=== PATIENT | female | born 1985 | race Caucasian/White ===

== ENCOUNTER 2018-05-12 08:36 | Day surgery (SDC) | payer OTHER ==
[2018-05-09 09:46] VITALS: BMI 47.8
[~2018-05-12 08:36] MED LIST: DEXAMETHASONE SOD PHOSPHATE 10 MG/ML 1 ML VIAL IV ONE; HEPARIN SODIUM,PORCINE 5,000 UNIT/ML 1 ML VIAL SQ ONE; HYDROmorphone 1 MG/ML 1 ML SYRINGE IVP PRN; LACTATED RINGERS 1,000 ML IV SCH; MIDAZOLAM (PF) 2 MG/2 ML VIAL IV PRN; ONDANSETRON 4 MG/2 ML VIAL IVP ONE; SCOPOLAMINE 1.5MG/72HR PATCH TRANSDERM ONE
[2018-05-12] MEDS ORDERED: LIDOCAINE 1% 20 ML VIAL (10MG/ML) FOR IV START INTRADERMA ONE (09:23)
--- NOTE | 2018-05-12 10:19 | P.GSHP ---
History of Present Illness H&P Date: 05/12/18 Chief Complaint: Back lipoma This is a 33-year-old female who has developed a 5 cm back lipoma. Patient has a lipoma located in the upper midline back. She states that she has pain when laying on her back. Past Medical History Past Medical History: Hypertension History of Any Multi-Drug Resistant Organisms: None Reported Past Surgical History: Cholecystectomy Past Anesthesia/Blood Transfusion Reactions: No Reported Reaction Past Psychological History: No Psychological Hx Reported Smoking Status: Current every day smoker Past Alcohol Use History: Occasional Additional Past Alcohol Use History / Comment(s): Smokes 6 cigarettes per day, has been smoking for 4 yrs. Past Drug Use History: None Reported - Past Family History Mother Family Medical History: No Reported History Medications and Allergies Home Medications Medication Instructions Recorded Confirmed Type Lisinopril [Zestril] 10 mg PO QAM 05/09/18 05/09/18 History Allergies Allergy/AdvReac Type Severity Reaction Status Date / Time No Known Allergies Allergy Verified 05/12/18 08:47 Surgical - Exam Vital Signs Temp Pulse Resp BP Pulse Ox 97.8 F 57 L 16 139/71 98 05/12/18 09:21 05/12/18 09:21 05/12/18 09:21 05/12/18 09:21 05/12/18 09:21 - General well developed, no distress - Eyes PERRL - ENT normal pinna - Neck no masses - Respiratory normal expansion - Cardiovascular Rhythm: regular - Abdomen Abdomen: soft, non tender Assessment and Plan Assessment: Back lipoma. We'll perform excision.
--- NOTE | 2018-05-12 10:30 | P.OP ---
Date of Procedure: 05/12/18 Preoperative Diagnosis: Screening colonoscopy Family history colonic Cancer Postoperative Diagnosis: Normal colon Procedure(s) Performed: Colonoscopy Anesthesia: MAC Surgeon: Gustavo Pappas Pathology: none sent Condition: stable Disposition: PACU Description of Procedure: My normal colonoscopy
[2018-05-12] MEDS ORDERED: fentaNYL (PF) 50 MCG/ML 2 ML AMP ONE (10:43)
[2018-05-12] MEDS ORDERED: LIDOCAINE 1% INJ 10MG/ML (20 ML MDV) ONE (10:43)
[2018-05-12] MEDS ORDERED: KETAMINE 10 MG/ML 20 ML VIAL ONE (10:43)
[2018-05-12] MEDS ORDERED: ceFAZolin 1,000 MG VIAL ONE (10:43)
[2018-05-12] MEDS ORDERED: MIDAZOLAM 2 MG/2 ML VIAL ONE (10:43)
[2018-05-12] MEDS ORDERED: PROPOFOL 10 MG/ML 20 ML VIAL IV ONE (10:43)
[2018-05-12] MEDS ORDERED: SODIUM CHLORIDE 0.9% 50 ML with ceFAZolin 2,000 MG IV ONE ×2 (10:46)
[2018-05-12] MEDS ORDERED: BUPIVACAIN-EPI 0.25%-1:200,000 30 ML VIAL SQ ONE ×2 (11:00→11:07)
--- NOTE | 2018-05-12 11:28 | P.OP ---
Date of Procedure: 05/12/18 Preoperative Diagnosis: 5 cm back lipoma Postoperative Diagnosis: 5 cm back sebaceous cyst Procedure(s) Performed: Excision of back sebaceous cyst Anesthesia: MAC Surgeon: Gustavo Pappas Estimated Blood Loss (ml): 5 Pathology: other (Sebaceous cyst) Condition: stable Disposition: PACU Description of Procedure: Patient's placed on the operating table in the lateral position. She received IV sedation. Her back was prepped and draped usual fashion. There was a 5 cm mass in her upper back. The skin was incised after adequate anesthesia was a local Xylocaine. The Bovie seems. The mass appeared to be sebaceous cyst. This was completely excised using left cautery. The mass measured approximately 5 cm in diameter. Skin was closed with interrupted 3-0 Monocryl suture. Dermabond was applied. Patient sent to recovery in stable condition.
[2018-05-12 11:38] VITALS: TEMP 97.4
[2018-05-12 11:49] VITALS: PULSE 56; RESP 16
[2018-05-12 12:05] VITALS: BP 126/81
== END 2018-05-12 12:19 | disposition home or self-care (01) ==
LOC: OR 08:36
PROVIDERS: ATTEND Surgery
DX: L72.0 Epidermal cyst (principal); I10 Essential (primary) hypertension; F17.210 Nicotine dependence, cigarettes, uncomplicated; Z79.899 Other long term (current) drug therapy; Z90.49 Acquired absence of other specified parts of digestive tract
CPT/HCPCS: 81025; 88304; 11406; J2250; J1644; J1100; J2405; J0690 ×2; J2001; J3010; J2704